=== PATIENT | female | born 1975 | race Caucasian/White ===

== ENCOUNTER 2018-03-02 10:21 | Emergency (ER) | payer MEDICAID ==
[2018-03-02 10:35] VITALS: BP 101/69; PULSE 99; TEMP 98.2; O2SAT 98; BMI 32.2
--- NOTE | 2018-03-02 11:50 | ED PDOC ---
Upper Extremity Pain/Injury Time Seen by Provider: 03/02/18 10:54 Chief Complaint (Nursing): Upper Extremity Problem/Injury History Per: Patient Additional Complaint(s): Pt. states this morning she woke up with atraumatic R wrist pain and swelling prompting ED visit. 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 Denies numbness, tingling, trauma, fever, rash. Past Medical History Reviewed: Historical Data, Nursing Documentation, Vital Signs Vital Signs: Last Vital Signs Temp 98.2 F 03/02/18 10:34 Pulse 99 H 03/02/18 10:34 Resp BP 101/69 03/02/18 10:34 Pulse Ox 98 03/02/18 10:34 - Family History Family History: States: No Known Family Hx - Home Medications Home Medications: Ambulatory Orders Medication Instructions Recorded Ciprofloxacin HCl [Cipro] 500 mg PO BID #14 tab 05/30/14 Phenazopyridine Hydrochlorid2 1 tab PO TID #6 tab 05/30/14 [Pyridium] - Allergies Allergies/Adverse Reactions: Allergies Allergy/AdvReac Type Severity Reaction Status Date / Time No Known Allergies Allergy Unverified 05/30/14 16:26 Review of Systems ROS Statement: Except As Marked, All Systems Reviewed And Found Negative Physical Exam - Physical Exam Appears: Positive for: Well, Non-toxic, No Acute Distress Skin: Positive for: Normal Color, Warm. Negative for: Rash Pulses-Radial (L): 2+ Pulses-Radial (R): 2+ Extremity: Positive for: Other (R wrist with mobile non-erythematous non- fluctuant pea sized swelling on dorsum of wrist) Neurologic/Psych: Positive for: Alert, Oriented - ECG O2 Sat by Pulse Oximetry: 98 - Radiology X-Ray: Interpreted by Me (Wrist x-ray) X-Ray Interpretation: No Acute Disease - Progress ED Course And Treament: R wrist x-rays ordered. Offered pain meds in ED but refused. R wrist immobilized in velcro preformed volar splint applied by engineering technology instructor. Advised to f/u with hand surgery or ortho for further evaluation. Disposition - Clinical Impression Clinical Impression: Ganglion cyst - Patient ED Disposition Is Patient to be Admitted: No - Disposition Referrals: [facility] [Outside] Brady Grimaldo MD [Staff Provider] - Jo Kidd MD [Staff Provider] - Disposition: Routine/Home Disposition Time: 13:45 Condition: STABLE Additional Instructions: Follow up with hand surgeon or orthopedist for further evaluation. Take NSAIDs such as Motrin OR aleve for pain. Return to ED immediately if symptoms worsen. Instructions: Ganglion Cyst (DC) Forms: [employer] (Yoruba) Print Language: SYRIAC
--- NOTE | 2018-03-02 12:27 | RAD ---
PROCEDURE: Right Wrist Radiographs. HISTORY: R wrist swelling COMPARISON: None. FINDINGS: BONES: No acute fracture. JOINTS: Remarkable. SOFT TISSUES: Normal. OTHER FINDINGS: None. IMPRESSION: No demonstrated fracture or dislocation.
== END 2018-03-02 12:50 | disposition home or self-care (01) ==
LOC: H.ER 10:21
DX: M67.431 Ganglion, right wrist (principal)

== ENCOUNTER 2018-08-24 05:49 | Day surgery (SDC) | payer MEDICAID ==
[2018-08-23 08:58] VITALS: BMI 33.8
[2018-08-24 06:47] LABS: BASO # 0.1 K/uL (0.0-0.2); BASO % 2.3 % (0.0-2.0); EOS # 0.3 K/uL (0.0-0.7); EOS % 7.9 % (0.0-4.0); HEMOGLOBIN 9.2 g/dL (12.0-16.0); LYMPH # 1.5 K/uL (1.0-4.3); MEAN CELL VOLUME 87.3 fl (81.0-99.0); MEAN CORPUSCULAR HEMOGLOBIN 28.4 pg (27.0-31.0); MEAN CORPUSCULAR HGB CONC 32.5 g/dL (33.0-37.0); MEAN PLATELET VOLUME 6.8 fl (7.2-11.7); MONO # 0.4 K/uL (0.0-0.8); MONO % 9.4 % (0.0-10.0); NEUT # 1.7 K/uL (1.8-7.0); NEUT % 43.4 % (50.0-75.0); RBC 3.24 Mil/uL (3.80-5.20); RED CELL DISTRIBUTION WIDTH 14.3 % (11.5-14.5)
--- NOTE | 2018-08-24 07:11 | CP.SDSHP ---
Same Day Surgery H & P - History Proposed Procedure: hysteroscopy/D-C/polypectomy Pre-Op Diagnosis: menorrhagia/possible endometrial polyp - Previous Medical/Surgical History Misc: Anemia Previous Surgical History: C/S x2, BTL/TOP - Allergies Allergies: Allergies No Known Allergies Allergy (Verified 08/24/18 06:31) - Physical Exam Vital Signs: Vital Signs 08/24/18 08/24/18 06:56 07:01 Temperature 98.3 F Pulse Rate 66 66 Respiratory 18 Rate Blood Pressure 107/69 O2 Sat by Pulse 98 Oximetry Mental Status: Alert & Oriented x3 Neuro: WNL Heart: WNL Lungs: WNL GI: WNL - {Optional Preform as Required} Abdomen: Other Integument: WNL DRY DIP WORKER: WNL 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
[2018-08-24] MEDS ORDERED: Propofol 10 mg/ml Inj (20 ML) ONE (07:18)
[2018-08-24] MEDS ORDERED: Dexamethasone 4 mg/1 ml ONE (07:22)
[2018-08-24] MEDS ORDERED: Midazolam 2 MG/2 ML VIAL ONE (07:45)
[2018-08-24] MEDS ORDERED: Lactated Ringer's 1,000 ML IV ONE ×2 (07:50)
[2018-08-24] MEDS ORDERED: HYDROmorphone 0.5 mg/0.5 ml ISec IVP PRN (08:18)
[2018-08-24] MEDS ORDERED: Lactated Ringer's 1,000 ML IV SCH (08:30)
[2018-08-24 08:58] VITALS: O2SAT 99
[2018-08-24 09:44] VITALS: BP 107/68; PULSE 63; RESP 18; TEMP 97.9
--- NOTE | 2018-08-29 20:20 | OP ---
PROCEDURE DATE: 08/24/2018 PREOPERATIVE DIAGNOSES: 1. Menorrhagia. 2. Endocervical polyp by ultrasound. 3. History of anemia. POSTOPERATIVE DIAGNOSES: 1. Menorrhagia. 2. Endocervical polyp by ultrasound. 3. History of anemia. PROCEDURE PERFORMED: Hysteroscopy with MyoSure polypectomy and fractional dilatation and curettage. SURGEON: Gio Meyers MD ANESTHESIA USED: General. ANESTHESIA ADMINISTERED BY: Ru Neumann MD ESTIMATED BLOOD LOSS: 50 mL. DRAINS USED: None. REPLACEMENTS USED: None. FINDINGS: 1. Cervix appears closed, long, posterior, thick. No gross lesion to visualization. 2. Uterus appears anteverted, mobile, about 8 weeks' size, sounded to 11 cm. 3. No adnexal masses to palpation bilaterally. 4. Hysteroscopy showed a fundal endometrial polyp, was removed in toto using MyoSure technique. 5. Fractional dilatation and curettage performed without any complication. DESCRIPTION OF PROCEDURE: The patient was taken to the operating room and placed on the operating table in a supine position. Following induction of general anesthesia, the patient was then replaced in a dorsal lithotomy position. Perineal and genital areas were draped and prepped in the usual sterile manner. At this time, a sterile catheter was then placed into the bladder. Clear fluid was then evacuated from the bladder. The patient was then examined under anesthesia with some of the above findings. Heavy weighted speculum was then placed in the posterior wall of the vagina exposing the cervix. The anterior lip of the cervix was then grasped using a single-tooth tenaculum and retracted superiorly. At this time, we then proceeded to using a Nelsy-Nery curette to curet the endocervical canal. After this, the endocervical canal was then dilated using Mehdi dilators in an increasing size manner. A hysteroscope was then placed in the endocervical canal and gently advanced under direct visualization after entering the endometrial cavity. At this time, a large endometrial polyp was noted to be present in the fundal aspect of the uterus. Using a MyoSure technique, polypectomy was then performed, and the polyp was then removed in toto. Hysteroscope was then removed under direct visualization. The endocervical cavity was then curetted using sharp curettage. Minimal amount of tissue obtained. Single-tooth tenaculum was then removed. Uterine massage contracted well. No bleeding noted from the tenaculum site. The patient tolerated the procedure well. There were no complications. She was transferred to the recovery room in satisfactory condition. Sponge and instrument count correct x3. Gio Meyers MD
== END 2018-08-24 10:10 | disposition home or self-care (01) ==
LOC: H.OPSURG 05:49
PROVIDERS: ATTEND Specialist
DX: N92.0 Excessive and frequent menstruation with regular cycle (principal); N84.0 Polyp of corpus uteri; D64.9 Anemia, unspecified; N84.1 Polyp of cervix uteri
CPT/HCPCS: 36415; 58558; 85025; 88305; J0694; J1100; J1885; J2001; J2250; J2405; J2704; J2765; J3010; J7030; J7120